=== PATIENT | female | born 1970 | race Caucasian/White ===

== ENCOUNTER 2017-08-10 07:32 | Day surgery (SDC) | payer BC, OTHER ==
[~2017-08-10] VITALS: Ht 167.6 cm; Wt 115.0 kg
[2017-08-10] VITALS (12 sets, daily range): BP systolic 85–111; BP diastolic 51–76; PULSE 71–88; TEMP 36.5–36.7; O2SAT 91–100; Ht 167.6 cm; Wt 115.0 kg
[2017-08-10] MEDS ORDERED: PROM25TA9 PO (08:11)
[2017-08-10] MEDS ORDERED: TRAM-10 PO (08:11)
[2017-08-10] MEDS ORDERED: LEFL20TA PO (08:11)
[2017-08-10] MEDS ORDERED: AMLO-114 PO (08:11)
[2017-08-10] MEDS ORDERED: SUMA100T16 PO (08:11)
[2017-08-10] MEDS ORDERED: BACL10TA PO (08:11)
[2017-08-10] MEDS ORDERED: TOFA1TAB PO (08:11)
[2017-08-10] MEDS ORDERED: PRED10TA PO (08:11)
[2017-08-10] MEDS ORDERED: LISI-788 PO (08:11)
[2017-08-10] MEDS ORDERED: ACET500C35 PO (08:12)
--- NOTE | 2017-08-10 10:13 | Discharge Instructions ---
Discharge Instructions Procedure Procedure Date: Aug 10, 2017. Reason for visit: Pseudo Tumor Cerebri *W/Opening Pressure. Discharge Discharge Date: Aug 10, 2017. Discharge Diagnosis: Pseudotumor cerebri Instructions Activity Recommendations: 1 Day-May resume regular activity, 48 Hours of decreased exertion, 1 Day with no exercise/sex/sports, 1 Day with no driving/ machine use Return to School/Work: limitations (light activity x 48 hours) Recommended Home Diet: Resume Previous Diet Provider Instructions: Fluoroscopic-guided lumbar puncture was performed at L3-L4 with removal of approximately 10 cc of cerebrospinal fluid. The procedure was well tolerated and without immediate complication. ACTIVITY RECOMMENDATIONS: * Rest today. * Resume regular activity in one day. MEDICATIONS: * May take Tylenol or Ibuprofen as needed for pain. DIET: * Resume previous diet. SPECIAL CARE INSTRUCTIONS: Call your doctor if: * Temperature above 101 degrees F. * Pain not relieved by pain medicine ordered. * Increased drainage or redness from incision. * Notify your doctor with any questions or concerns. Call your doctor or go to the nearest Emergency Department if you experience: * Increased chest pain or shortness of breath. FOLLOW UP VISIT: Follow-up with Referring Physician as scheduled. Allergies Uncoded Allergies: PENICILLIN (Allergy, Intermediate, RASH, 08/10/17) Ronan Torres Recommendations: Call your doctor if: * Temperature above 101 degrees * Pain not relieved by pain medicine ordered * There is increased drainage or redness from any incision * You have any unanswered questions or concerns. Your Doctors Instructions noted above were prepared by provider Zurdo Jorgensen. Patient Signature Section: Patient Instructions Signature Page Светлана Miller Patient (or Guardian) Signature/Date: I have read and understand the instructions given to me by my caregivers. Caregiver/RN/Doctor Signature/Date: The above-named patient and/or guardian has received patient instructions on this date. + Original Patient Signature Page (only) stays with chart. Please make copy for patient.
[2017-08-10] MEDS ORDERED: ACETAMINOPHEN 500 MG TAB PO PRN (10:15)
--- NOTE | 2017-08-10 10:16 | DIAGNOSTIC IMAGING REPORT ---
FLUOROSCOPIC GUIDED LUMBAR PUNCTURE CLINICAL HISTORY: Pseudotumor cerebri PROCEDURE: The risks, benefits, and alternatives to the procedure is discussed with the patient who voiced understanding. Written informed consent was obtained. The patient was placed prone on the fluoroscopy table. The lower back was prepped and draped in the usual sterile fashion. 1% lidocaine was used for local anesthesia. A 22-gauge spinal needle was inserted into the L3-L4 interlaminar space, opening pressures were assessed, and approximately 10 cc of clear colorless cerebrospinal fluid was removed. The patient tolerated the procedure well. There were no immediate complications. The patient was then transported to the medical treatment unit for further observation. Fluoroscopy time: 0.3 minutes. Opening pressures: 28 cm of water. IMPRESSION: Fluoroscopic guided lumbar puncture with removal of approximately 10 cc of cerebrospinal fluid. There were no immediate complications. Electronically signed by: Zurdo Jorgensen M.D. 08/10/2017 10:15 AM Dictated Date/Time: 08/10/2017 10:14 AM
[2017-08-10 10:34] LABS: CSF TOTAL PROTEIN 56.9 mg/dl (15.0-45.0)
[2017-08-10 10:49] LABS: CSF APPEARANCE CLEAR; CSF COLOR COLORLESS; CSF XANTHOCHROMIC NO XANTHOCHROMIA
== END 2017-08-10 14:10 | disposition home or self-care (01) ==
LOC: C.ACU 07:32
PROVIDERS: ATTEND Psychiatry & Neurology Neurology
DX: G93.2 Benign intracranial hypertension (principal)